=== PATIENT | female | born 1975 | race Caucasian/White ===

== ENCOUNTER → 2018-06-11 | Outpatient (CLI) | payer MEDICAID ==
--- NOTE | 2018-06-11 09:21 | P.HPBAR ---
Bariatric H&P - History & Physicial H&P Date: 06/11/18 History & Physicial: Visit/CC: Patient initial contact: Initial weight: Initial weight in pounds: Height: Initial BMI: Last weight: Current weight: Current weight in pounds: Current BMI: [place] body weight (based on NIH guidelines): Excess body weight loss: The patient is a 42 year-old F who presents for Bariatric Assessment. 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 She is looking into the sleeve gastrectomy. She reports problems with obesity since high school. In 2013, she was on Concerta for ADD and lost much weight and now has regained her weight. Her lowest weight of 160 pounds. She become and has regained weight. She is on a no-carb to low-carb diet. She sees Dr. Archuleta. She reports gastroesophageal and takes Tums daily especially from Tuna fish. She still has her gallbladder. She reports her mother has gallbladder disease. She reports constipation. She reports left upper quadrant pain. She reports c-sections. No family history of stomach or esophageal. She is an easy bruiser. She had a full hypercoagulable work-up. No blood in stools. ABDOMEN: No upper abdominal incisions. ASSESSMENT: 1. Morbid obesity 2. Chronic anemia PLAN: 1. Recommend bariatric labs 2. Upper scope and lower scope 3. EKG to be viewed. Bariatric Checklist Checklist: Plan: Checklist: EGD: 1. Hiatal hernia: 2. H. Pylori: HgbA1c: Vitamin D: Smoking: Primary care physician referral: Psychiatry clearance: Cardiology clearance: Sleep study: Diet journal: VTE risk score: VTE risk level: Rehab needs at discharge:
[2018-06-11 09:46] VITALS: BP 126/74; PULSE 79; RESP 16; TEMP 98.1; BMI 41.8
[2018-06-11 10:31] LABS: INR 0.9 (<1.2); Partial Thromboplastin Time 23.9 sec (22.0-30.0); Prothrombin Time 9.4 sec (9.0-12.0)
[2018-06-11 10:38] LABS: HCT 43.3 % (34.0-46.0); HGB 13.7 gm/dL (11.4-16.0); MCH 28.6 pg (25.0-35.0); MCHC 31.6 g/dL (31.0-37.0); MCV 90.6 fL (80.0-100.0); Mean Platelet Volume 7.7; Platelet Count 226 k/uL (150-450); RBC 4.79 m/uL (3.80-5.40); RDW 13.8 % (11.5-15.5); WBC 5.1 k/uL (3.8-10.6)
[2018-06-11 18:52] LABS: Parathyroid Hormone Intact 74.9 pg/mL (14.0-72.0)
[2018-06-11 20:53] LABS: Phosphorus 2.7 mg/dL (2.4-5.1)
[2018-06-11 20:54] LABS: Albumin 4.1 g/dL (3.80-4.90); Albumin/Globulin Ratio 1.95 (1.60-3.17); Anion Gap 7.3 mmol/L (4.00-12.00); Calcium 8.8 mg/dL (8.7-10.3); Carbon Dioxide 24.7 mmol/L (21.6-31.8); Globulin 2.1 g/dL (1.6-3.3); LDL Cholesterol,Calculated 123.6 mg/dL (0.0-131.0); Potassium 4.4 mmol/L (3.5-5.5); Total Bilirubin 0.3 mg/dL (0.3-1.2); Total Protein 6.2 g/dL (6.2-8.2); VLDL Calculation 19.4 mg/dL (5.00-40.00)
[2018-06-11 21:03] LABS: Iron Saturation 43.28 (12.00-45.00)
[2018-06-11 21:18] LABS: Folate, Serum 17.6 ng/mL; Vitamin D 25 Hydroxy 14.1 ng/mL (30.0-100.0)
[2018-06-11 22:57] LABS: Hemoglobin A1C 5.1 % (4.0-6.0)
[2018-06-12 12:55] LABS: Zinc, Serum 94 ug/dL (60-130)
[2018-06-13 15:06] LABS: Vit B1(Thiamine) 46 ug/L (38-122)
[2018-06-15 07:16] LABS: Vitamin A 47 ug/dL (38-106)
[2018-06-16 00:44] LABS: Selenium 111 mcg/L (63-160)
== END ==
LOC: BARWHC3 08:44
PROVIDERS: ATTEND Surgery Plastic and Reconstructive Surgery
DX: E66.01 Morbid (severe) obesity due to excess calories (principal); E88.81 Metabolic syndrome and other insulin resistance; E44.0 Moderate protein-calorie malnutrition; E55.9 Vitamin D deficiency, unspecified; I11.9 Hypertensive heart disease without heart failure; G47.30 Sleep apnea, unspecified; E21.1 Secondary hyperparathyroidism, not elsewhere classified; E89.1 Postprocedural hypoinsulinemia; D50.9 Iron deficiency anemia, unspecified; K74.1 Hepatic sclerosis; N19 Unspecified kidney failure; K50.90 Crohn's disease, unspecified, without complications; Z68.43 Body mass index [BMI] 50.0-59.9, adult
CPT/HCPCS: 80053; 80061; 82306; 82525; 82607; 82728; 82746; 83036; 83540; 83550; 83735; 83970; 84100; 84134; 84255; 84425; 84443; 84590; 84630; 85027; 85610; 85730; 93005; 99201

== ENCOUNTER → 2018-09-07 | Outpatient (CLI) | payer MEDICAID ==
[2018-09-07 09:51] VITALS: BMI 42.5
== END | disposition home or self-care (01) ==
LOC: BARWHC3 08:14
PROVIDERS: ATTEND Surgery Plastic and Reconstructive Surgery
DX: E66.01 Morbid (severe) obesity due to excess calories (principal); Z68.41 Body mass index [BMI] 40.0-44.9, adult
CPT/HCPCS: 97804

== ENCOUNTER 2018-09-28 10:11 | Day surgery (SDC) | payer MEDICAID, OTHER ==
[2018-09-24 11:51] VITALS: BMI 42.0
--- NOTE | 2018-09-28 07:07 | P.GSHP ---
History of Present Illness H&P Date: 09/28/18 CHIEF COMPLAINT: GERD and change in bowel habits HISTORY OF PRESENT ILLNESS: The patient is a 42 year-old female who presents with gastroesophageal reflux disease and change in bowel habits. Upper and lower endoscopy were offered for further evaluation and management. PAST MEDICAL HISTORY: Please see list. PAST SURGICAL HISTORY: Please see list. MEDICATIONS: Please see list. ALLERGIES: Please see list. SOCIAL HISTORY: No illicit drug use FAMILY HISTORY: No reports of Crohn disease or ulcerative colitis. REVIEW OF ORGAN SYSTEMS: CONSTITUTIONAL: No reports of fevers or chills. PHYSICAL EXAM: VITAL SIGNS: Stable GENERAL: Well-developed pleasant in no acute distress. HEENT: No scleral icterus. Extraocular movements grossly intact. Moist buccal mucosa. NECK: Supple without lymphadenopathy. CHEST: Unlabored respirations. Equal bilateral excursions. CARDIOVASCULAR: Regular rate and rhythm. Distal 2+ pulses. ABDOMEN: Soft, nondistended. MUSCULOSKELETAL: No clubbing, cyanosis, or edema. ASSESSMENT: 1. Gastroesophageal reflux disease 2. Change in bowel habits PLAN: 1. Recommend proceeding with an upper and lower endoscopy Past Medical History Past Medical History: Hypertension Additional Past Medical History / Comment(s): hypotension History of Any Multi-Drug Resistant Organisms: None Reported Past Surgical History: Section Additional Past Surgical History / Comment(s): c section x 3, surgery for ectopic Past Anesthesia/Blood Transfusion Reactions: No Reported Reaction Smoking Status: Never smoker - Past Family History Mother Family Medical History: Deep Vein Thrombosis (DVT) Medications and Allergies Home Medications Medication Instructions Recorded Confirmed Type ALPRAZolam [Xanax] 2 mg PO DAILY 06/11/18 09/24/18 History Multivitamins, Thera [Multivitamin 1 tab PO DAILY 06/11/18 09/24/18 History (formulary)] Allergies Allergy/AdvReac Type Severity Reaction Status Date / Time acetaminophen [From Vicodin] Allergy Rash/Hives Verified 09/24/18 11:47 hydrocodone [From Vicodin] Allergy Rash/Hives Verified 09/24/18 11:47
[~2018-09-28 10:11] MED LIST: LACTATED RINGERS 1,000 ML IV SCH; LIDOCAINE 1% 20 ML VIAL (10MG/ML) FOR IV START INTRADERMA PRN
[2018-09-28 10:31] VITALS: RESP 18; TEMP 98.5
[2018-09-28] MEDS ORDERED: LACTATED RINGERS 1,000 ML IV ONE (10:31)
[2018-09-28] MEDS ORDERED: LIDOCAINE 1% 20 ML VIAL (10MG/ML) FOR IV START INTRADERMA ONE (10:31)
[2018-09-28] MEDS ORDERED: LIDOCAINE 1% INJ 10MG/ML (20 ML MDV) ONE (10:49)
[2018-09-28] MEDS ORDERED: GLYCOPYRROLATE 0.2 MG/ML 2 ML VIAL ONE (10:49)
[2018-09-28] MEDS ORDERED: PROPOFOL 10 MG/ML 20 ML VIAL IV ONE (10:49)
--- NOTE | 2018-09-28 11:22 | P.PCN ---
Date of Procedure: 09/28/18 Description of Procedure: PREOPERATIVE DIAGNOSIS: Gastroesophageal reflux disease. Morbid obesity. POSTOPERATIVE DIAGNOSIS: Morbid obesity. Gastritis. Gastroesophageal reflux disease with erosive esophagitis OPERATION: Esophagogastroduodenoscopy with biopsies along antrum. SURGEON: Bibiana Esqueda MD ANESTHESIA: MAC. INDICATIONS: The patient is a 42-year-old female who presents with a history of reflux disease. Benefits and risks of the procedure were described. Informed consent was obtained. DESCRIPTION: The patient was brought into the endoscopy suite and laid in the left lateral decubitus position. An Olympus gastroscope was passed along the posterior oropharynx down to the distal esophagus where the squamocolumnar junction was encountered at 36 cm from the incisors. The stomach was entered and no bile reflux was found. Additional findings are listed below. Biopsies with cold forceps were obtained of the antrum. The first through third portion of the duodenum was examined and unremarkable. Retroflexion of the scope confirmed Hill grade 2 lower esophageal valve. The squamocolumnar junction demonstrated LA grade C erosive esophagitis. The stomach was desufflated. The patient tolerated the procedure well. FINDINGS: Squamocolumnar junction 36 cm from the incisors. Diaphragmatic hiatus at 36 cm. Hill grade 2 lower esophageal valve. LA grade C erosive esophagitis. No active duodenitis. Chronic gastritis RECOMMENDATIONS: Upper endoscopy as needed. Start proton pump inhibitor
--- NOTE | 2018-09-28 11:24 | P.PCN ---
Date of Procedure: 09/28/18 Description of Procedure: PREOPERATIVE DIAGNOSIS: Change in bowel habits with diarrhea POSTOPERATIVE DIAGNOSIS: Change in bowel habits with diarrhea External hemorrhoids, grade 3 OPERATION: Colonoscopy to the ileocecal valve and appendiceal orifice. SURGEON: Bibiana Esqueda MD. ANESTHESIA: MAC. INDICATIONS: The patient is a 42-year-old female who presents with change in bowel habits including diarrhea. Benefits and risks were described and informed consent was obtained. DESCRIPTION OF PROCEDURE: The patient had undergone Suprep. She had been brought into the operating room and laid in the left lateral decubitus position. After adequate intravenous sedation, the rectum was examined with 2% lidocaine jelly. External hemorrhoids were encountered. The rectal tone was within normal limits. No lesions were palpated in the rectal vault. An Olympus colonoscope was advanced until the ileocecal valve and appendiceal orifice were clearly viewed. The prep was excellent with clear visualization of the mucosal folds. The scope was removed with visualization of each mucosal fold. No scattered diverticulosis was encountered. No colonic polyps were found. Random biopsies cold forceps were used for history of change in bowel habits of diarrhea for microscopic colitis. Retroflexion of the scope demonstrated grade 2 internal hemorrhoids without active bleeding or inflammation. The colon was desufflated. The patient had tolerated the procedure well. Withdrawal time was over 6 minutes. FINDINGS: Aronchick preparation quality scale 1 (1-5) Internal hemorrhoids, grade 2 External prolapsed hemorrhoids, grade 3 No arteriovenous malformations. No adenomatous polyps. Random biopsies cold forceps were used for history of change in bowel habits of diarrhea for microscopic colitis. RECOMMENDATIONS: Lower endoscopy as needed Plan - Discharge Summary Discharge Rx Participant: No New Discharge Prescriptions: New Omeprazole 40 mg PO DAILY #30 capsule. No Action ALPRAZolam [Xanax] 2 mg PO DAILY Multivitamins, Thera [Multivitamin (formulary)] 1 tab PO DAILY Discharge Medication List ALPRAZolam [Xanax] 2 mg PO DAILY 06/11/18 [History] Multivitamins, Thera [Multivitamin (formulary)] 1 tab PO DAILY 06/11/18 [History] Omeprazole 40 mg PO DAILY #30 capsule. 09/28/18 [Rx] Follow up Appointment(s)/Referral(s): [facility] [[facility]STAFF] - 10/14/18 Patient Instructions/Handouts: *[facility] - (Anesthesia) Endoscopy Discharge Instructions, Gastritis (ED), Hemorrhoids (DC), Gastroesophageal Reflux Disease (DC), Colonoscopy (DC), Upper Endoscopy (DC) Discharge Disposition: HOME SELF-CARE
[2018-09-28 11:27] VITALS: PULSE 72
[2018-09-28 11:44] VITALS: BP 133/85
== END 2018-09-28 12:04 | disposition home or self-care (01) ==
LOC: ORWHC2ENDO 10:11
PROVIDERS: ATTEND Surgery Plastic and Reconstructive Surgery
DX: K21.0 Gastro-esophageal reflux disease with esophagitis (principal); K29.50 Unspecified chronic gastritis without bleeding; R19.7 Diarrhea, unspecified; K64.1 Second degree hemorrhoids; K64.4 Residual hemorrhoidal skin tags; I10 Essential (primary) hypertension; E66.01 Morbid (severe) obesity due to excess calories; Z68.41 Body mass index [BMI] 40.0-44.9, adult; Z79.899 Other long term (current) drug therapy; Z88.5 Allergy status to narcotic agent; Z82.49 Family history of ischemic heart disease and other diseases of the circulatory system
CPT/HCPCS: 81025; 88305; 45380; 43239; J2001; J2704

== ENCOUNTER → 2018-12-02 | Outpatient (CLI) | payer MEDICAID, OTHER ==
--- NOTE | 2018-12-02 15:10 | P.PN ---
Subjective Progress Note Date: 12/02/18 DATE OF SERVICE: 12/02/2018 ROSALIND COMPLAINT: Morbid obesity HISTORY OF PRESENT ILLNESS: Johnnie Castrejon is a 43-year-old female who comes in with morbid obesity. As a result of her obesity, she has developed osteoarthritis of the knees, lower back, and gastroesophageal reflux disease. She has hypertension. She has been started on and doing well with Nexium for gastroesophageal reflux disease. She had moderate erosive esophagitis. She has family history of throat cancer from tobacco. She has family history is positive for DVT in mom. Her sister's mom and cousins has Factor V. Her mother had her gallbladder out. She has not had her gallbladder checked. At height of 5 feet 4 inches, her ideal body weight is 144 pounds. She comes in 247 pounds from 243 pounds, 6 months ago. She has gained 4 pounds in 6 months. Her body mass index is 42.6. She is 103 pounds overweight. PAST MEDICAL HISTORY: 1. Morbid obesity due to excess calories 2. Body mass index of 42.6 3. Osteoarthritis of the knees. 4. Osteoarthritis of the lower back. 5. Gastroesophageal reflux disease 6. Iron deficiency anemia 7. Anxiety 8. Hypertensive heart disease PAST SURGICAL HISTORY: 1. section 2. Ectopic 3. EGD HOME MEDICATIONS: ALLERGIES: Medications and Allergies Home Medications Medication Instructions Recorded Confirmed Type ALPRAZolam [Xanax] 2 mg PO DAILY 06/11/18 06/11/18 History Multivitamins, Thera [Multivitamin 1 tab PO DAILY 06/11/18 06/11/18 History (formulary)] Allergies Allergy/AdvReac Type Severity Reaction Status Date / Time acetaminophen [From Vicodin] Allergy Rash/Hives Verified 06/11/18 15:57 hydrocodone [From Vicodin] Allergy Rash/Hives Verified 06/11/18 15:57 SOCIAL HISTORY: Past tobacco use. FAMILY HISTORY: No family history of ulcerative colitis disease or Crohn's disease. Family history of morbid obesity. No lupus in the family. No reports of stomach or esophageal cancer. She reports her mother has gallbladder disease. Family history of throat cancer from tobacco. Family history is positive for DVT in mom. Her sister's mom, and cousins with Factor V. Her mother had her gallbladder out. REVIEW OF ORGAN SYSTEMS: CONSTITUTIONAL: At height of 5 feet 4 inches, her ideal body weight is 144 pounds. She comes in 247 pounds. Her body mass index is 42.6. She is 103 pounds overweight. HEENT: Denies any active troubles with vision or hearing. Has troubles with swallowing. ENDOCRINE: Has diabetes. No hypothyroidism. CARDIOVASCULAR: Past reports of palpitations or heart attacks or chest pain. RESPIRATORY: Has daytime somnolence. Has asthma. GASTROINTESTINAL: Denies any bright red blood per rectum. No diarrhea. No constipation. Has GERD. MUSCULOSKELETAL: Has lower back pain and joint pain. Has osteoarthritis of the knees. NEURO: No headaches. No seizure disorders. PSYCH: Has depression. No suicidal ideation. RHEUMATOLOGIC: No lupus. No rheumatoid arthritis. HEMATOLOGIC: Denies any abnormal bleeding or bruising. No personal history of DVTs. On anticoagulant. SKIN: No rash. No skin cancer. PHYSICAL EXAM: VITAL SIGNS: Height 5 foot 4 inches, weight 247 pounds. BMI 42.6 Vital Signs Temp 98.2 F 12/02/18 17:13 Pulse 16 L 12/02/18 17:13 Resp 16 12/02/18 17:13 BP 144/79 12/02/18 17:13 Pulse Ox GENERAL: Well-developed in no acute distress. HEENT: No scleral icterus. Extraocular movements grossly intact. Hears conversational speech. No nasal drainage. NECK: Supple without lymphadenopathy. CHEST: Nonlabored respirations with equal bilateral excursions. CARDIOVASCULAR: Regular rate and regular rhythm. Distal 2+ pulses. ABDOMEN: Obese, soft, nontender, nondistended. No upper abdominal incisions. MUSCULOSKELETAL: No clubbing, cyanosis. Gross strength 5/5 distal lower extremities. NEURO: No focal or lateralizing signs. Cranial nerves 2 through 12 grossly within normal limits. PSYCH: Appropriate affect. Alert and oriented to person, place and time. SKIN: Good skin turgor. Well perfused. EKG: Boderline. LABS: Vitamin D is low 14.1, PTH is elevated EGD FINDINGS: Squamocolumnar junction 36 cm from the incisors. Diaphragmatic hiatus at 36 cm. Hill grade 2 lower esophageal valve. LA grade C erosive esophagitis. No active duodenitis. Chronic gastritis Final Pathologic Diagnosis A. GASTRIC ANTRUM, BIOPSY: Mild chronic gastritis. Helicobacter pylori organisms are not identified on routine H+E sections. B. COLON, RANDOM BIOPSY: Benign colonic mucosa without histopathologic changes. ASSESSMENT: 1. Morbid obesity due to excess calories 2. Body mass index of 42.6 3. Osteoarthritis of the knees. 4. Osteoarthritis of the lower back. 5. Gastroesophageal reflux disease 6. Iron deficiency anemia 7. Anxiety 8. Hypertensive heart disease. 9. Vitamin D deficiency 10. Secondary hyperparathyroidism 11. Borderline EKG 12. Erosive esophagitis PLAN: 1. Bariatric options between a sleeve, band and a Lyssa-en-Y gastric bypass were reviewed in detail. The patient elected for a sleeve gastrectomy. Robotic assisted approach described. 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 2. The [place] [facility] Data was also reviewed with benefits and risks as described. 3. An 8 page second-generation bariatric consent form was reviewed in detail including potential of bleeding, infection, leaks, adequate weight loss, nutritional deficiencies which the patient demonstrated understanding of the risks. 4. A 2 week high-protein low caloric 800 kcal diet described to address hepatomegaly. 5. Preoperative labs including complete metabolic panel and CBC with type and screen recommended. 6. DVT prophylaxis per [place] [facility]. 7. Antibiotic prophylaxis. 8. Inpatient hospitalization anticipated for more than 2 nights. 9. All questions and concerns were addressed with the patient. 10. Will need vitamin D supplement 50,000 units weekly or divided doses daily. 11. She has family history positive for DVT in her mom, aunt, and cousins with Factor V. 12. Will need Lovenox for postop. 13. Recommend US and HIDA scan for gallbladder disease.
[2018-12-02 17:20] VITALS: BP 144/79; PULSE 16; RESP 16; TEMP 98.2; BMI 42.5
== END | disposition home or self-care (01) ==
LOC: BARWHC3 13:58
PROVIDERS: ATTEND Surgery Plastic and Reconstructive Surgery
DX: E66.01 Morbid (severe) obesity due to excess calories (principal); Z68.41 Body mass index [BMI] 40.0-44.9, adult; M17.0 Bilateral primary osteoarthritis of knee; K21.9 Gastro-esophageal reflux disease without esophagitis; D50.9 Iron deficiency anemia, unspecified; F41.9 Anxiety disorder, unspecified; I11.9 Hypertensive heart disease without heart failure; E55.9 Vitamin D deficiency, unspecified; N25.81 Secondary hyperparathyroidism of renal origin; R94.31 Abnormal electrocardiogram [ECG] [EKG]; K20.8 Other esophagitis; Z87.891 Personal history of nicotine dependence; Z88.5 Allergy status to narcotic agent; Z79.899 Other long term (current) drug therapy
CPT/HCPCS: 99211